=== PATIENT | male | born 1980 | race Caucasian/White ===

== ENCOUNTER 2023-02-10 00:49 | Day surgery (SDC) | payer BC, SELFPAY ==
[2023-01-30 09:57] VITALS: BMI 35.4
--- NOTE | 2023-02-07 15:26 | PM.HPGS ---
History of Present Illness History of Present Illness Consent: Risks, benefits, and alternatives have been discussed and questions answered. Patient agrees to proceed with procedure. Chief complaint: neoplasm screening Narrative: Mingo Silva is a 43 year old male Referred for colon cancer screening. Review of Systems Review of Systems: All systems reviewed & are unremarkable except as noted in HPI and below PMFSH Past Medical History Medical History Encounter for screening colonoscopy External hemorrhoid Vasectomy planned Surgical History Surgical History S/P LASIK surgery of both eyes Family History Family History Grandparent Cerebrovascular accident Family history of malignant neoplasm of thyroid Acute myocardial infarction Father Family history of chronic obstructive pulmonary disease, Onset Age: 65 Family history of diabetes mellitus in first degree relative, Onset Age: 65 Patient's father is Diabetes mellitus Mother Family history of malignant neoplasm of breast in first degree relative Diabetes mellitus Social History Social History Smoking status: Never smoker Alcohol intake: current Alcohol use details: 1 drink monthly Substance use type: does not use Living arrangements: with family Spiritual care concerns: No Meds Home Medications and Allergies Home Medications Medication Instructions Recorded Confirmed Type multivitamin (Daily Multi-Vitamin 1 tablet PO DAILY 10/17/22 01/30/23 History tablet) cetirizine 10 mg tablet (Zyrtec) 10 mg PO DAILY 01/30/23 01/30/23 History zinc 50 mg tablet 50 mg PO DAILY 01/30/23 01/30/23 History Allergies Allergy/AdvReac Type Severity Reaction Status Date / Time No Known Allergies Allergy Mild Verified 02/10/23 06:53 Exam Const: General: alert Orientation/consciousness: patient oriented x3 Resp: Auscultation: clear to auscultation bilaterally Cardio: Rhythm: regular rhythm GI: GI Palp: Yes Soft to palpation and No Tenderness to palpation present (GI) Neuro: General: patient oriented x3 Assessment and Plan Assessment and plan (1) Encounter for screening colonoscopy: Code(s): Z12.11 - Encounter for screening for malignant neoplasm of colon Status: Acute Assessment and Plan: Colonoscopy with possible biopsy or polypectomy or cautery or injection of substances.
[2023-02-10 06:55] VITALS: BP 116/77; PULSE 79; RESP 18; TEMP 36.7; O2SAT 97
[2023-02-10] MEDS: LACTATED RINGERS 1,000 ML 150 ML IV CONT (06:58)
--- NOTE | 2023-02-10 07:23 | WPDANESEPPF ---
Anes - Initial Pre Proc Eval Procedure: Operation Date: 02/10/23 08:00 Proposed Procedures p Screening Colonoscopy - Theo Santos MD Date/Time: 02/10/23 07:23 Surgeon: Theo Santos MD Pre Op Diagnosis: neoplasm screening Patient Data Age: 43 Gender: M Height: 1.75 m Weight: 106.8 kg Last Vital Signs Temp 98.1 F 02/10/23 06:55 Pulse 79 02/10/23 06:55 Resp 18 02/10/23 06:55 BP 116/77 02/10/23 06:55 Pulse Ox 97 02/10/23 06:55 O2 Del Method Room Air 02/10/23 06:55 Allergies Allergy/AdvReac Type Severity Reaction Status Date / Time No Known Allergies Allergy Mild Verified 02/10/23 06:53 Home Medications Medication Instructions Recorded Confirmed Type multivitamin (Daily Multi-Vitamin 1 tablet PO DAILY 10/17/22 01/30/23 History tablet) cetirizine 10 mg tablet (Zyrtec) 10 mg PO DAILY 01/30/23 01/30/23 History zinc 50 mg tablet 50 mg PO DAILY 01/30/23 01/30/23 History Patient hx anesthesia problems: none Family hx anesthesia problems: none Results Review: All pre-operative results and documents have been reviewed as part of the pre-operative evaluation. [facility] Past Medical History Medical History Encounter for screening colonoscopy External hemorrhoid Vasectomy planned Surgical History Surgical History S/P LASIK surgery of both eyes Family History Family History Grandparent Cerebrovascular accident Family history of malignant neoplasm of thyroid Acute myocardial infarction Father Family history of chronic obstructive pulmonary disease, Onset Age: 65 Family history of diabetes mellitus in first degree relative, Onset Age: 65 Patient's father is Diabetes mellitus Mother Family history of malignant neoplasm of breast in first degree relative Diabetes mellitus Social History Social History Smoking status: Never smoker Alcohol intake: current Alcohol use details: 1 drink monthly Substance use type: does not use Living arrangements: with family Spiritual care concerns: No Anes - Eval Final PreProcedure Day of Procedure 02/10/23 07:23 Patient weight: obese Heart: regular rate and rhythm Lungs: clear to auscultation Airway: Mallampati scale class II Neurological: alert and oriented Last oral intake: >/= 8 hours ASA classification: II Emergent: no Anesthetic plan: proceed Anesthesia type and monitoring: general GIVS and standard monitoring Results Review: All pre-operative results and documents have been reviewed as part of the pre-operative evaluation. Informed Consent: The patient's anesthetic plan and its attendant risks and benefits were discussed with the patient/family/POA. Questions were solicited and answers provided to the satisfaction of the patient/family/POA.
[2023-02-10 07:42] VITALS: BP 107/66; PULSE 77; RESP 20; O2SAT 98
[2023-02-10 07:52] VITALS: BP 116/96; PULSE 69; RESP 31; O2SAT 98
[2023-02-10 08:02] VITALS: BP 109/68; PULSE 66; RESP 17; O2SAT 98
== END 2023-02-10 08:09 | disposition home or self-care (01) ==
PROVIDERS: PCP Nurse Practitioner; Visit Provider Internal Medicine Gastroenterology
PROC: 0DJD8ZZ Inspection of Lower Intestinal Tract, Via Natural or Artificial Opening Endoscopic (ICD-10-PCS; CPT 45378; principal; 2023-02-10 08:00)
DX: Z12.11 Encounter for screening for malignant neoplasm of colon (principal); K57.30 Diverticulosis of large intestine without perforation or abscess without bleeding; K64.8 Other hemorrhoids; E66.9 Obesity, unspecified; Z68.34 Body mass index [BMI] 34.0-34.9, adult
CPT/HCPCS: 45378; J2704; J7120

== ENCOUNTER 2025-04-04 17:00 | Emergency (ER) | payer BC, SELFPAY ==
--- OUTSIDE RECORDS SUMMARY | 2025-04-04 17:02 | XMS_ITS | Clinical Summary ---
Author Organization [facility] Address [address] [place] [address] Care Team Providers Care Contract Recruiter Name Role Phone Unavailable Primary Care Provider Unavailabl e Immunizations Immunization Administration Dates Next Due Covid-19, Mrna, Lnp-s, PF, 1 00 mcg/0.5 mL Dose (Moderna) 05/18/2021 Social History Tobacco Use Types Packs/Day Years Used Date Smoking Tobacco: Never Assessed Sex and Gender Information Value Date Recorded Sex Assigned at Not on file Legal Sex Male 11:53 AM CDT Gender Identity Not on file Sexual Orientation Not on file Plan of Treatment Health Maintenance Due Date Last Done Comments Hepatitis C Virus (HCV) Screening 1978 TdaP Immunization 1978 Hepatitis B Immunization (1 of 3 - 19+ 3-dose series) 1997 Cologuard 2023 Colonoscopy 2023 Colorectal Cancer Screening 2023 Immunochemical Fecal Occult Blood 2023 Influenza Immunization (#1) 2025 SARS-COV-2 Immunization (2024- season) 2025 05/18/2021, 09/11/2020, 08/14/2020 Respiratory Syncytial Virus (RSV) Immunization (Adult) (1 - 1-dose 75+ series) 2053 Human Papillomavirus (HPV) Immunization Aged Out No longer eligible b ased on patient's age to complete this topic Meningococcal Immunization (ACWY) Aged Out No longer eligible b ased on patient's age to complete this topic Pneumococcal Immunization Combined Aged Out No longer eligible b ased on patient's age to complete this topic Rotavirus Immunization Aged Out No lo nger eligible based on patient's age to complete this topic
--- OUTSIDE RECORDS SUMMARY | 2025-04-04 17:03 | XMS_ITS | Clinical Summary ---
Author Organization [facility] Address [address] [address] Care Team Providers Care Senior Radiation Therapist Name Role Phone Unavailable Primary Care Provider Unavailabl e Source Comments [facility],non-owned Affiliates and Associated Physician Practices is amultiple site organization consisting of ambulatory clinics and hospital sitesin [place], [place], [place] and [place]. This disclosure is being madepursuant to the Care Everywhere program and may not contain all information available regarding this patient. Last updated 18.[facility] Allergies No known active allergies Medications * Be aware that medications may not be up to date on this document. Alwaysverify current medications with the patient. predniSONE (DELTASONE) 10 MG tablet 5 tabs PO x 1 day, 4 tabs PO x 1 day, 3 tabs PO x 1 day, 2 tabs PO x 1 day, 1 tab PO x 1 day 15 Tab 7 Active albuterol HFA (VENTOLIN HFA) 108 (90 BASE) MCG/ACT inhaler Inhale 2 Puffs by mouth every 6 hours as needed for Shortness of Breath, Wheezing or Cough 1 Inhaler 7 Active Social History Tobacco Use Types Packs/Day Years Used Date Smoking Tobacco: Never Sex and Gender Information Value Date Recorded Sex Assigned at Not on file Legal Sex Male 9:14 AM CDT Gender Identity Not on file Sexual Orientation Not on file Last Filed Vital Signs Vital Sign Reading Time Taken Comments Blood Pressure 124/78 11/18/2016 5:22 PM CDT Pulse 63 11/18/2016 5:22 PM CDT Temperature 36.7 C (98 F) 11/18/2016 5:22 PM CDT Respiratory Rate 16 11/18/2016 5:22 PM CDT Oxygen Saturation 96% 11/18/2016 5:22 PM CDT Inhaled Oxygen Concentration - - Weight 97.5 kg (215 lb) 11/18/2016 5:22 PM CDT Height 175.3 cm (5' 9) 11/18/2016 5:22 PM CDT Body Mass Index 31.75 11/18/2016 5:22 PM CDT Plan of Treatment Health Maintenance Due Date Last Done Comments COLOGUARD (AGES 45-75) - COL ON CA SCREENING 1978 COLON MONITORING 1978 COLONOSCOPY - COLON CA SCREENING 1978 CT COLONOGRAPHY - COLON CA SCREENING 1978 Colorectal Cancer Screening 1978 FIT - COLON CA SCREENING 1978 FLEX SIG - COLON CA SCREENING 1978 LIPID TESTING 1978 HIV SCREENING 1993 HEPATITIS C SCREENING 01/11/1996 DTAP/TDAP/TD VACCINES (1 - Tdap) 1997 HEPATITIS B VACCINE (1 of 3 - 19+ 3-dose series) 1997 DEPRESSION SCREENING 07/14/2024 COVID-19 VACCINE (1 - 2023-2 5 season) 2025 INFLUENZA VACCINE (#1) 2025 ZOSTER VACCINE (1 of 2) 01/16/2028 HIB VACCINE Aged Out No longer eligi ble based on patient's age to complete this topic HPV VACCINE Aged Out No longer eligi ble based on patient's age to complete this topic MENINGOCOCCAL (Group B) VACC INE SHARED DECISION-MAKING Aged Out No longer eligibl e based on patient's age to complete this topic MENINGOCOCCAL GROUPS A/C/Y/W VACCINE Aged Out No longer eligible b ased on patient's age to complete this topic PNEUMOCOCCAL VACCINE Aged Out No long er eligible based on patient's age to complete [place] [address] HEATHER
--- OUTSIDE RECORDS SUMMARY | 2025-04-04 17:03 | XMS_ITS | Clinical Summary ---
Author Organization [facility] Address [facility] [place] [address] Care Team Providers Care Channel Marketing Program Manager Name Role Phone Solange Brown NP Primary Care Provider [phone] Allergies No known active allergies Medications Zinc 50 MG Tab Activ e vitamin C (ASCORBIC ACID) 250 MG tablet Take 1 tablet (250 mg total) by mouth daily. Active Multiple Vitamin (MULTIVITAMIN ADULT OR) Active vitamin D3 (CHOLECALCIFERO L) 1.25 mg capsuleIndicati ons:Vitamin D deficiency Take 1 capsule (50,000 Units total) by mouth once a week. 8 capsule Active Additional Information Patient not taking.Reported on 11/04/2024 fish oil (OMEGA-3 FATTY ACID) 1000 MG Cap capsule Take 1 capsule (1,000 mg total) by mouth 2 (two) times daily. Active Active Problems Problem Noted Date Diagnosed Date Elevated liver enzymes 06/30/2024 Assessment & Plan (06/30/2024 3:44 PM ASTRONOMY PROFESSOR): Liver enzymes are elevated. We went over diet and lifestyle changes to help lower ezymes. Pt does not drink alcohol or take Tylenol daily. Vitamin D deficiency 06/30/2024 Assessment & Plan (06/30/2024 3:46 PM ASTRONOMY PROFESSOR): Vitamin D is low. Will begin 50,000IU once weekly for eight weeks then begin maintence dose of 2000IU of D3 daily Hyperlipidemia, unspecified hyperlipidemia type 09/13/2021 Assessment & Plan (06/30/2024 3:45 PM ASTRONOMY PROFESSOR): Labs reviewed. Diet and lifestyle changes encouraged. Can begin daily fish oil as well. Statin not indicated to begin at this time but to focus on diet/lifestyle changes and weight loss. The 10-year ASCVD risk score (John MELVIN, et al., 2019) is: 3.4% Values used to calculate the score: Age: 44 years Sex: Male Is Non- : No Diabetic: No Tobacco smoker: No Systolic Blood Pressure: 128 mmHg Is BP treated: No HDL Cholesterol: 32 mg/dL Total Cholesterol: 183 mg/dL Obesity (BMI 35.0-39.9 without comorbidity) 10/2019 Assessment & Plan (06/30/2024 3:45 PM ASTRONOMY PROFESSOR): Encourage diet and lifestyle changes to assist with weight loss. Arthritis of right acromioclavicular joint 06/16 Resolved Problems Problem Noted Date Diagnosed Date Resolved Date Class 1 obesity with body ma ss index (BMI) of 33.0 to 33.9 in adult, unspecified obesity type, unspecified whether serious comorbidity present 09/13/2021 12/24/2023 Occupational exposure to env ironmental pollution 06/16/2020 12/24/2023 Immunizations Immunization Administration Dates Next Due MODERNA COVID-19 (12+) MRNA, LNP-S, PF, 100 MCG/ 0.5 ML DOSE 05/18/2021,09/11/2020,08/14/2020 Family History Medical History Relation Comments COPD Father Diabetes Father cardiomyopathy Father Lung Cancer Maternal Grandmother Breast Cancer Mother Relation Status Comments Father Maternal Grandmother Mother Social History Tobacco Use Types Packs/Day Years Used Date Smoking Tobacco: Never Passive Smoke Exposure: Past Smokeless Tobacco: Never Tobacco Cessation:Counseling Given: No Alcohol Use Standard Drinks/Week Comments Not Currently 0 (1 standard drink = 0.6 oz pur e alcohol) PHQ-2 Answer Date Recorded Patient Health Questionnaire-2 Score 0 11/04/2024 Sex and Gender Information Value Date Recorded Sex Assigned at Male 11/04/2024 3:38 PM CDT Legal Sex Male 10:17 AM CDT Gender Identity Male 11/04/2024 3:38 PM CDT Sexual Orientation Straight 11/04/2024 3: 38 PM CDT Last Filed Vital Signs Vital Sign Reading Time Taken Comments Blood Pressure 122/80 11/04/2024 3:38 PM CDT Pulse 71 11/04/2024 3:38 PM CDT Temperature 36.1 C (97 F) 11/04/2024 3:38 PM CDT Respiratory Rate 18 11/04/2024 3:38 PM CDT Oxygen Saturation 96% 11/04/2024 3:38 PM CDT Inhaled Oxygen Concentration - - Weight 112 kg (247 lb) 11/04/2024 3:38 PM CDT Height 175.3 cm (5' 9) 11/04/2024 3:38 PM CDT Body Mass Index 36.48 11/04/2024 3:38 PM CDT Plan of Treatment Upcoming Encounters Date Type Department Care Team (Late st Contact Info) Description 04/05/2025 3:20 PM CDT Office Visit [facility] - [place] [address] [place], [place] [address] Solange Brown, [employer] [address] [place], [place] [id number] Health Maintenance Due Date Last Done Comments DTaP, Tdap and Td Vaccines ( 1 - Tdap) 1997 Hepatitis B Vaccines (1 of 3 - 19+ 3-dose series) 1997 Annual Physical 12/23/2024 12/24/2023, 12/18/2022 COVID-19 Vaccine (4 - 2024-2 6 season) 2025 05/18/2021, 09/11/2020, 08/14/2020 Colorectal Cancer Screening Colonoscopy (10 Years) 02/10/2033 02/10/2023 Hepatitis C Completed 05/20/2024 PHQ-2 (Physician Falun) Completed 11/04/2024 Meningococcal B Vaccine Aged Out No l onger eligible based on patient's age to complete this topic Meningococcal Vaccine Aged Out No meredith dustin eligible based on patient's age to complete this topic Pneumococcal Vaccine: Pediatrics (0 to 5 Years) and At-Risk Patients (6 to 49 Years) Aged Out No longer eligible b ased on patient's age to complete this topic RSV Immunizations Under 20 Months Aged Out No longer eligible b ased on patient's age to complete this topic Procedures Procedure Name Priority Date/Time Associated Diagnosis Comments HEPATITIS C ANTIBODY Routine 05/20/2024 10:14 AM ASTRONOMY PROFESSOR Need for hepatitis C screening test COLONOSCOPY GENERIC (SCAN ORDER) 02/10/2023 from Last 3 Months or Most Recently Relevant to Health Maintenance Results * HEPATITIS C ANTIBODY (05/20/2024 10:14 AM ASTRONOMY PROFESSOR) HEPATITIS C AB Non Reactive Non Reacti [facility] 1 Comment: HCV antibody alone does not differentiate between previously resolved infection and active infection. Equivocal and Reactive HCV antibody results should be followed up with an HCV RNA test to support the diagnosis of active HCV infection. 05/20/2024 10:1 4 AM ASTRONOMY PROFESSOR 05/20/2024 Narrative [facility] - 05/21/2024 8:12 AM ASTRONOMY PROFESSOR Performed at: [address] [place] [id number] Editing Clerk: Carlos Hairston PhD, Phone: [phone] us Solange Brown [employer] [facility] Final Res ult [facility] [address] [place] [address] [facility] 1 * COLONOSCOPY GENERIC (02/10/2023) 02/10/2023 [facility] Scanned SCANNING Final Resu lt from Last 3 Months or Most Recently Relevant to Health Maintenance [place] [place] [address] Care Teams Channel Marketing Program Manager Relationship Specialty Start Date End Date Solange Brown NP [address] [place] [address] PCP - General NURSE PRACTITIONER 04/10/21
[2025-04-04 17:11] VITALS: BP 117/71; PULSE 83; RESP 18; TEMP 36.2; O2SAT 97
--- NOTE | 2025-04-04 17:11 | ED.URI ---
HPI - URI/Sore Throat General Chief Complaint: Upper Respiratory Infection Stated Complaint: Wheezing, coughing, no fever 2wks Time Seen by Provider: 04/04/25 17:12 Source: patient, family, RN notes reviewed and old records reviewed Mode of arrival: ambulatory Limitations: no limitations History of Present Illness HPI Narrative: 45-year-old male accompanied by spouse presents to Express Care complaints of 2.5 weeks duration of cough with some wheezing at night as reported by . Patient states that he has had yellow phlegm from his chest and has been blowing yellow drainage from his nose. Patient reports that he is never sick and just seems to not be able to break this. He reports that he has not had any known fevers or acute dyspnea. no nausea vomiting or diarrhea or any chest pain. He states that he has been taking ZYzal, Mucinex, Benadryl, Sudafed and also taken COUGH syrup without resolution. MD elicited complaint: cough (2.5 weeks) Onset (ago): week(s) (2.5) Severity: moderate Description of mucous: yellow Able to tolerate fluids by mouth: Yes Treatments prior to arrival: other (Zyzal, Mucinex, Benadryl Sudafed and cough syrup) Related Data Home Medications ?Medication ?Instructions ?Recorded ?Confirmed ?Last Taken ?Type multivitamin (Daily Multi-Vitamin 1 tablet PO DAILY 10/17/22 01/30/23 02/09/23 History tablet) zinc 50 mg tablet 50 mg PO DAILY 01/30/23 01/30/23 02/09/23 History omega 0-qpq-urg-fish oil 1,000 mg 1 cap PO DAILY 04/04/25 04/04/25 Unknown History (120 mg-180 mg) capsule (Fish Oil) Allergies Allergy/AdvReac Type Severity Reaction Status Date / Time No Known Allergies Allergy Mild Verified 04/04/25 17:11 Review of Systems Review of Systems: CONSTITUTIONAL: Reports malaise, no chills, sweats, or fever. EYES: Denies visual changes, redness, or discharge. ENT: Reports rhinorrhea, congestion, sinus pressure,no otalgia and nosore throat. CARDIOVASCULAR: Denies chest pain, palpitations, or edema. RESPIRATORY: Reports productive cough.? Denies dyspnea. GASTROINTESTINAL: Denies abdominal pain, nausea, vomiting, diarrhea SKIN: Denies rash or itching. MUSCULOSKELETAL: Denies myalgia reports fatigue. NEUROLOGIC: Denies headache. All systems reviewed & are unremarkable except as noted in HPI and below PMFSH Past Medical History Medical History Encounter for screening colonoscopy External hemorrhoid Vasectomy planned Surgical History Surgical History S/P LASIK surgery of both eyes Family History Family History Grandparent Cerebrovascular accident Family history of malignant neoplasm of thyroid Acute myocardial infarction Father Family history of chronic obstructive pulmonary disease, Onset Age: 65 Family history of diabetes mellitus in first degree relative, Onset Age: 65 Patient's father is Diabetes mellitus Mother Family history of malignant neoplasm of breast in first degree relative Diabetes mellitus Social History Social History Smoking status: Never smoker Alcohol intake: current Alcohol use details: 1 drink monthly Substance use type: does not use Living arrangements: with family Spiritual care concerns: No Comments At time of signature, agree with nursing past medical, surgical, social and family history. There is no relevant family history pertinent to the presenting complaint Exam Narrative: GENERAL: Well-appearing, well-nourished, and in no acute distress. HEAD: Normocephalic EYES: PERRLA, conjunctivae clear ENT: Nares clear, turbinates edematous and erythematous, yellow discharge, sinus pressure, Mucous membranes moist. TM pearly cisneros with dull light reflex bilaterally; no tragal tenderness. Oropharynx erythematous without lesions. Tonsils not enlarged and without exudate, no drooling, no hoarseness, no trismus, uvula midline.post nasal drainage. NECK: Supple. No lymphadenopathy CHEST: Clear to auscultation, breath sounds equal. No wheezing, rhonchi, rales, or stridor. No respiratory distress, speaks in full sentences.productive cough of yellow tinged phlegm, SAO2 97% on room air HEART: Regular rate and rhythm. No murmur heard. SKIN: Warm, dry, no rash. NEURO: Alert and oriented x3. PSYCH: Normal mood and affect Course Course Emergency Course: Patient is aware of diagnosis, understands and agrees to treatment plan.? Anticipatory guidance given.? Patient agrees to follow-up as directed and is aware of reasons to seek care at the emergency department. Portions of this record may have been created with voice recognition software Level of Care: Express Care Visit Vital Signs Vital signs: Vital Signs Temperature 36.2 C L 04/04/25 17:11 Pulse Rate 83 04/04/25 17:11 Respiratory Rate 18 04/04/25 17:11 Blood Pressure 117/71 04/04/25 17:11 Pulse Oximetry 97 04/04/25 17:11 Oxygen Delivery Room Air 04/04/25 17:11 Temperature 36.2 C L 04/04/25 17:11 Pulse Rate 83 04/04/25 17:11 Respiratory Rate 18 04/04/25 17:11 Blood Pressure 117/71 04/04/25 17:11 Pulse Oximetry 97 04/04/25 17:11 Oxygen Delivery Room Air 04/04/25 17:11 Reviewed MDM - URI/Sore Throat MDM Narrative Medical decision making narrative: Differential diagnosis considered: Najera virus, strep pharyngitis, allergic rhinitis, upper respiratory tract infection, sinusitis, rhinosinusitis, nasopharyngitis. viral pharyngitis, otitis media, otitis externa, pneumonia, bronchitis, viral cough syndrome, viral syndrome, and influenza.? Exam findings show no acute concerns or changes; patient is non-toxic appearing and is in no distress.? Patient is appropriate for outpatient treatment and follow-up. Differential Diagnosis Differential diagnosis: Likely upper respiratory infection, sinusitis, viral infection, bronchitis and other (acute cough) Medical Records Attestation: I reviewed the patient's medical records. Lab Data Attestation: I reviewed the patient's lab results. Critical Care Time Critical Care Time Critical Care Time: No Discharge Plan Discharge Clinical Impression: Acute cough Sinusitis Qualifiers: Sinusitis location: pansinusitis Chronicity: acute Recurrence: not specified as recurrent Qualified Code(s): J01.40 - Acute pansinusitis, unspecified Patient Disposition: Home Condition: Stable Instructions: Antibiotic Form, Sinusitis (ED), Acute Cough (ED) Additional Instructions: Increase fluids especially juices and water [id number]-vlubzqz cough and cold medicine of your choice for your symptoms Zyrtec Claritin or Amy daily include plain Sudafed 1 in a.m. and 1 early p.m. Tylenol or ibuprofen for any fever pain Steroids as directed--take with food heat to the face 20-30 minutes 4-6 times a day for pain Salt water gargles, throat lozenges or throat sprays as desired Antibiotic as directed--finished the medication If your symptoms persist, change or worsen significantly before you can contact your personal physician then please, without delay, go to the emergency department for further evaluation. Follow-up with PCP in 7-10 days or sooner if needed Follow up with PCP soon in regards to your blood pressure which is elevated above threshold for referral. Blood pressure above 120/80 may indicate pre-hypertension. Patient Language: Tajik Prescriptions: New amoxicillin-pot clavulanate 875-125 mg tablet 1 tablet PO Q12H Qty: 20 0RF Rx Instructions: Take with food recommend either taking probiotic or eating Activia yogurt while on this medication prednisone 20 mg tablet 20 mg PO BID Qty: 10 0RF No Action omega 1-lrk-kzh-fish oil [Fish Oil] 1,000 (120-180) mg capsule 1 cap PO DAILY multivitamin [Daily Multi-Vitamin] Tablet 1 tablet PO DAILY zinc 50 mg Tablet 50 mg PO DAILY Follow-up/Referrals: Kevin,CAESAR Stanley [Primary Care Provider, Unknown] Time of Disposition: 17:34 Quality [place] Coma Scale Eyes: Open Verbal: Oriented and Alert Motor: Follows Commands [place] Coma Total Score: 15
== END 2025-04-04 17:40 | disposition home or self-care (01) ==
PROVIDERS: Emergency Provider Registered Nurse; PCP Nurse Practitioner
DX: R05.1 Acute cough (principal); J01.40 Acute pansinusitis, unspecified
CPT/HCPCS: 99213; G0463